=== PATIENT | male | born 1990 | race African-American/Black ===

== ENCOUNTER 2016-08-18 16:51 | Emergency (ER) | payer OTHER ==
[2016-08-18] MEDS ORDERED: ONDANSETRON 4 MG/2 ML VIAL IVP STA (21:26)
[2016-08-18] MEDS ORDERED: SODIUM CHLORIDE 0.9% 1,000 ML IV STA (21:26)
[2016-08-18] MEDS ORDERED: ONDANSETRON 4 MG/2 ML VIAL ONE ×2 (21:38→22:20)
[2016-08-18] MEDS ORDERED: ONDANSETRON ODT 4 MG Prepack 2 TL PRN (23:14)
[2016-08-18] MEDS ORDERED: DIPHENOX/ATROPINE 2.5/0.025 MG TABLET PO STA (23:15)
[2016-08-18] MEDS ORDERED: ONDANSETRON ODT 4 MG Prepack 2 TL ONE (23:20)
[2016-08-18] MEDS ORDERED: DIPHENOX/ATROPINE 2.5/0.025 MG TABLET PO ONE (23:20)
== END 2016-08-18 23:33 | disposition home or self-care (01) ==
DX: K52.9 Noninfective gastroenteritis and colitis, unspecified (principal)
CPT/HCPCS: 36415; 80053; 83690; 85025; 96374; 99283; 99284; A9270